=== PATIENT | female | born 1940 | race Caucasian/White ===

== ENCOUNTER 2018-11-30 05:35 | Day surgery (SDC) | payer OTHER | END 2018-11-30 09:45 | disposition home or self-care (01) | LOC: AMB-ENDOS 05:35 | DX: D12.2 Benign neoplasm of ascending colon (principal); K57.30 Diverticulosis of large intestine without perforation or abscess without bleeding ==

== ENCOUNTER 2020-03-27 07:26 | Day surgery (SDC) | payer OTHER | END 2020-03-27 11:05 | disposition home or self-care (01) | LOC: AMB-ENDOS 07:26 → ADM 12:00 | PROVIDERS: ATTEND Surgery | DX: D12.0 Benign neoplasm of cecum (principal); Z20.822 Contact with and (suspected) exposure to COVID-19 ==